=== PATIENT | male | born 1995 | race Hispanic/Latino ===

== ENCOUNTER 2025-02-05 19:19 | Emergency (ER) | payer SELFPAY ==
[~2025-02-05] VITALS: Ht 182.9 cm; Wt 124.7 kg
--- NOTE | 2025-02-05 20:05 | ERN ---
ED Note History of Present Illness Stated Complaint: NUMBNESS IN FEET, HANDS AND ELBOW Chief Complaint: FOOT INJURY/PAIN Time Seen by MD: 19:22 Time Seen by Midlevel: 19:35 Dictation: Mr. García is a 29 year old male with history of obesity who presented to the Emergency Department this evening for evaluation of bilateral foot pain. He reports pain to bilateral feet which he describes as burning. He states the pain is worse to great toes. Pain is worse when he has to do walking or stand for extended period of time. He has been having the pain intermittently for the past few months but worsened this past weekend. He states he did drink a beer this weekend He is also complaining of some pain to the right elbow. He denies any trauma/injury. He denies history of gout or diabetes. He denies having fever, chills, shortness of breath, cough, chest pain, palpitations, abdominal pain, nausea, vomiting, diarrhea, dysuria, headache, or dizziness. 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 EYES: Patient denies any visual symptoms. EARS, NOSE, AND THROAT: No difficulties with hearing. No symptoms of rhinitis or sore throat. CARDIOVASCULAR: Patient denies chest pains, palpitations, orthopnea and paroxysmal nocturnal dyspnea. RESPIRATORY: No dyspnea on exertion, no wheezing or cough. GI: No nausea, vomiting, diarrhea, constipation, abdominal pain, hematochezia or melena. : No urinary hesitancy or dribbling. No nocturia or urinary frequency. No abnormal urethral discharge. MUSCULOSKELETAL: Reports pain to both feet; especially great toes. States he has history of deformity of the great toes. Reports pain to right elbow. NEUROLOGIC: No chronic headaches, no seizures. Patient denies numbness, tingling or weakness. PSYCHIATRIC: Patient denies problems with mood disturbance. No problems with anxiety. ENDOCRINE: No excessive urination or excessive thirst. DERMATOLOGIC: Patient denies any rashes or skin changes. Initial Vital Sign VS Vital Signs Date Time Temp Pulse Resp B/P (MAP) Pulse Ox O2 Delivery O2 Flow Rate FiO2 02/05/25 19:48 98.4 72 18 144/97 98 Room Air 0 02/05/25 20:41 21 Physical Exam Dictation Vital signs: Reviewed. Afebrile Constitutional: No acute distress. Non-toxic appearing. Accompanied by significant other Head/Face: Normocephalic, atraumatic. Eyes: Periorbital areas with no swelling, redness, or edema. Lids and lashes are normal. Conjunctival injection is absent. Sclera anicteric. Pupils equal, round, reactive to light. ENT: Pinnas intact and no signs of trauma or erythema. Ear canals clear and no discharge. TMs no erythema. No nasal discharge or bleeding noted. Oropharynx with no exudate, redness, swelling, masses, exudates, or evidence of obstruction. Uvula midline. Mucous membranes moist. Neck: Trachea midline, no masses palpated, and no cervical lymphadenopathy. No swelling. Supple, full range of motion. Chest/Axilla: No tenderness, no crepitus, no paradoxical movement, no retractions. Cardiovascular: Regular rate, regular rhythm, no murmur, no gallops. Symmetric pulses. No peripheral edema. Respiratory: Respirations even and unlabored. Lung sounds clear; no wheezes, rales or rhonchi. Room air SpO2 98% Gastrointestinal: Inspection is normal. No distention is appreciated. Bowel sounds are normal. No mass or organomegaly . There is no tenderness. No rebound. No rigidity. No voluntary or involuntary guarding. No Mae's sign. Neurological: Normal speech, gross motor function intact, gross sensory function intact. No focal weakness/Paresthesia. Musculoskeletal/Extremities: All extremities have full range of motion. No deformity of the right elbow but he does have some discomfort with range of motion and pain extending to the forearm. 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 Both great toes with bright erythema and tender to touch. Both feet with dry/scaly skin. Integumentary: Intact. Skin is normal color, warm and dry. Cap refill less than 2 seconds. Results (Laboratory/Radiology) Laboratory/Radiology Laboratory Tests Test 02/05/25 20:39 White Blood Count 7.8 K/uL (4.8-10.8) Red Blood Count 4.45 MIL/uL (4.50-6.20) L Hemoglobin 13.8 g/dL (14.0-18.0) L Hematocrit 40.6 % (42-54) L Mean Corpuscular Volume 91.2 fL (79-99) Mean Corpuscular Hemoglobin 31.0 pg (27.0-33.0) Mean Corpuscular Hemoglobin Concent 34.0 g/dL (32.0-36.0) Red Cell Distribution Width 11.7 % (11.0-15.5) Platelet Count 311 K/uL (130-400) Mean Platelet Volume 9.0 fL (7.5-10.5) Immature Granulocyte % (Auto) 0.6 % (0-1) Neutrophils (%) (Auto) 61.4 % (40.0-77.0) Lymphocytes (%) (Auto) 26.5 % (21.0-51.0) Monocytes (%) (Auto) 8.3 % (3.0-13.0) Eosinophils (%) (Auto) 2.8 % (0.0-8.0) Basophils (%) (Auto) 0.4 % (0.0-5.0) Neutrophils # (Auto) 4.8 K/uL (1.8-7.7) Lymphocytes # (Auto) 2.1 K/uL (1.0-4.8) Monocytes # (Auto) 0.7 K/uL (0.1-1.0) Eosinophils # (Auto) 0.22 K/uL (0.00-0.70) Basophils # (Auto) 0.03 K/uL (0.00-0.20) Absolute Immature Granulocyte (auto 0.05 K/uL (0-1) Nucleated Red Blood Cells 0.0 % (0.0-0.19) Erythrocyte Sedimentation Rate 11 MM/HR (0-15) Sodium Level 134 mmol/L (136-145) L Potassium Level 3.4 mmol/L (3.5-5.1) L Chloride Level 99 mmol/L (101-111) L Carbon Dioxide Level 33 mmol/L (21-32) H Blood Urea Nitrogen 10 mg/dL (7-18) Creatinine 0.9 mg/dL (0.5-1.3) Glomerular Filtration Rate Calc 119 mL/min (>90) Random Glucose 108 mg/dL (70-105) H Uric Acid 4.9 mg/dL (2.6-7.2) Total Calcium 9.2 mg/dL (8.5-10.1) Total Bilirubin 0.2 mg/dL (0.2-1.0) Direct Bilirubin 0.1 mg/dL (0.0-0.3) Aspartate Amino Transf (AST/SGOT) 16 U/L (10-37) Alanine Aminotransferase (ALT/SGPT) 27 U/L (12-78) Alkaline Phosphatase 79 U/L (50-136) Total Protein 7.1 g/dL (6.0-8.3) Albumin 3.7 g/dL (3.5-5.0) Labs Reviewed?: Yes ED Course ED Course Orders Procedure Category Date Status Time Uric Acid LAB 02/05/25 Complete 20:23 Erythrocyte LAB 02/05/25 Complete Sedimentation Rate 20:23 Cbc With Differential LAB 02/05/25 Complete 20:23 Basic Metabolic Panel LAB 02/05/25 Complete 20:23 Hepatic Function Panel LAB 02/05/25 Complete 20:23 Ketorolac 60mg/2ml PHA 02/05/25 Complete (Toradol 60mg/2ml) 20:30 Current Medications Medications (Trade) Dose Ordered Sig/Declan Route PRN Reason Start Time Stop Time Status Last Admin Dose Admin Ketorolac Tromethamine (toRADol 60MG/ 2ML) 60 mg ONCE ONCE IM 02/05/25 20:30 02/05/25 20:43 DC 02/05/25 21:03 Vital Signs Date Time Temp Pulse Resp B/P (MAP) Pulse Ox O2 Delivery O2 Flow Rate FiO2 02/05/25 21:51 98.6 66 20 130/66 100 Room Air* 0 21 02/05/25 20:41 98.6 64 20 132/78 100 Room Air* 0 21 02/05/25 19:48 98.4 72 18 144/97 98 Room Air 0 Uneventful ED course. Vital signs remained stable; afebrile and normotensive with room air SpO2 98-100%. He received dose Toradol IM x1 and endorses decreasing pain. Laboratory findings as noted below. No elevation of WBCs. There is no elevation of ESR/uric acid. Glucose 108. Findings were discussed with patient. He will benefit from follow up with hospital aides and assistants teacher. Medical Decision Making MDM MDM: Differential diagnosis: Gout, type 2 diabetes, peripheral neuropathy Rationale: Tests considered and ordered secondary to shared decision making include: Lab Previous outside records reviewed: Old ER visits. Risk of complication and/or morbidity or mortality of patient management: None Medications-Per medication reconciliation Need for hospitalization: Patient does not meet criteria for hospitalization. Need for emergency major/minor surgery: No There are no social concerns with this patient. Prescription drug management: Clotrimazole, ibuprofen Prescriptions will include symptomatic care Patient's prior external medical records from other ER visits were reviewed by me as indicated. Prior testing and results from previous visits were reviewed. Prior tests were taken into account with medical decision making and resource utilization, independent historian/historians were used to obtain complete medical history. I independently interpreted the test that were performed, results were reviewed by me and considered findings on radiology if ordered. Medical management and examination interpretation discussions were had by me with other qualified healthcare professionals as indicated for the patient's care. DX & DISP Disposition: Discharge Departure Impression: Primary Impression: Peripheral neuropathy Additional Impressions: Fungal infection of foot, Arthralgia Condition: Stable Scripts Ibuprofen (Ibuprofen) 600 Mg Tablet 600 MG PO Q6H PRN for PAIN, #15 TAB 0 Refills Prov: DAVID AGEE NP 02/05/25 Clotrimazole (Clotrimazole) 1 % Cream..g. 1 APPL TP BID for 7 Days, #15 GM 0 Refills apply to affected area(s) Prov: DAVID AGEE NP 02/05/25 Additional Instructions: Water foot soaks twice daily. Wear clean/cotton socks. Apply clotrimazole cream twice daily. Continue with nonsteroidal anti-inflammatory medication (ibuprofen) every 6 hours as needed for discomfort. You will need to follow up with a hospital aides and assistants teacher for further evaluation of nonspecific peripheral neuropathy feet. Your blood glucose level was within normal limits. Referrals: SELF,REFERRAL (PCP) GANESH RAMIREZ DPM Time of Disposition: 22:12 DAVID AGEE NP Feb 05, 2025 20:05
[2025-02-05 20:54] LABS: BASOPHILS # (AUTO) 0.03 K/uL (0.00-0.20); BASOPHILS % (AUTO) 0.4 % (0.0-5.0); EOSINOPHILS # (AUTO) 0.22 K/uL (0.00-0.70); EOSINOPHILS % (AUTO) 2.8 % (0.0-8.0); HEMATOCRIT 40.6 % (42-54); IMMATURE GRANULOCYTE ABSOLUTE 0.05 K/uL (0-1); LYMPHOCYTES # (AUTO) 2.1 K/uL (1.0-4.8); LYMPHOCYTES % (AUTO) 26.5 % (21.0-51.0); MEAN CORPUSCULAR VOLUME 91.2 fL (79-99); MONOCYTES # (AUTO) 0.7 K/uL (0.1-1.0); MONOCYTES % (AUTO) 8.3 % (3.0-13.0); NEUTROPHILS # (AUTO) 4.8 K/uL (1.8-7.7); NEUTROPHILS % (AUTO) 61.4 % (40.0-77.0); PLATELET COUNT (AUTO) 311 K/uL (130-400); RED BLOOD CELL COUNT(AUTO) 4.45 MIL/uL (4.50-6.20); RED CELL DISTRIBUTION WIDTH 11.7 % (11.0-15.5); WHITE BLOOD COUNT (AUTO) 7.8 K/uL (4.8-10.8)
[2025-02-05 21:03] LABS: CREATININE 0.9 mg/dL (0.5-1.3); POTASSIUM 3.4 mmol/L (3.5-5.1)
[2025-02-05] MEDS: ketOROlac 60 MG VIAL (30MG/ML) IM ONE (21:03)
[2025-02-05 21:07] LABS: ALBUMIN 3.7 g/dL (3.5-5.0); BILIRUBIN,DIRECT 0.1 mg/dL (0.0-0.3); BILIRUBIN,TOTAL 0.2 mg/dL (0.2-1.0); TOTAL PROTEIN, SERUM 7.1 g/dL (6.0-8.3); URIC ACID 4.9 mg/dL (2.6-7.2)
[2025-02-05 21:51] VITALS: BP 130/66; PULSE 66; RESP 20; TEMP 98.6; O2SAT 100
[2025-02-05 22:03] LABS: ERYTHROCYTE SEDIMENTATION RATE 11 MM/HR (0-15)
[2025-02-05] MEDS ORDERED: CLOT15CR23 TP (22:10)
[2025-02-05] MEDS ORDERED: IBUP-2070 PO (22:10)
== END 2025-02-05 22:19 | disposition home or self-care (01) ==
LOC: EDH 19:19
DX: G62.9 Polyneuropathy, unspecified (principal); B35.3 Tinea pedis; M79.672 Pain in left foot
CPT/HCPCS: 99283; 80076; 84550; 80048; 85025; 85651; 36415; 96372; J1885